=== PATIENT | female | born 1970 | race Caucasian/White ===

== ENCOUNTER 2020-01-13 07:37 | Day surgery (SDC) | payer MEDICARE, MEDICAID, SELFPAY ==
[2020-01-07 15:41] VITALS: BMI 25.8
--- NOTE | 2020-01-09 15:34 | HO.ANESPROP2 ---
Documented by User: Anuja Soria 01/09/20 15:35 HPI - Anesthesia Eval Consult details Narrative: 49yo F for Colonoscopy PMFSH Past Medical History Medical History Asthma Chronic back pain Depression Diabetes Erythrocytosis Fatty liver Hx of renal calculi OCD (obsessive compulsive disorder) Panic disorder Rheumatoid arthritis Surgical History Surgical History Hx of appendectomy Social History Social History Are you a primary care manager cna to a significant other at home: No Do you presently have visiting nurse or other home services: No Smoking Status: Never smoker Use of substances other than those prescribed or required for medical reasons: No Have you been hit, kicked, punched, or otherwise hurt by someone within the past year? If so, by whom?: No Advance Directives: No Advance Directives Information Provided: No Advance Directives on File: No Recently lost weight without trying: No Meds Allergies Allergy/AdvReac Type Severity Reaction Status Date / Time No Known Allergies Allergy Unverified 11/07/19 14:59 Home Medications Medication Instructions Recorded Confirmed Type acetaminophen [Tylenol Extra 500 mg PO Q6H PRN 01/07/20 01/07/20 History Strength] albuterol sulfate [Ventolin HFA] INHALATION 01/07/20 History atorvastatin 1 tab PO DAILY 01/07/20 01/07/20 History clonazepam 1 tab PO BEDTIME PRN 01/07/20 01/07/20 History escitalopram oxalate 1 tab PO DAILY 01/07/20 01/07/20 History fenofibrate 1 tab PO DAILY 01/07/20 01/07/20 History fluticasone propion-salmeterol INHALATION 01/07/20 History [Advair Diskus] gabapentin PO 01/07/20 History hydroxyzine pamoate 1 cap PO TID 01/07/20 01/07/20 History metformin 1 tab PO BID 01/07/20 01/07/20 History omeprazole 20 mg PO DAILY 01/07/20 01/07/20 History sertraline mg PO 01/07/20 History Exam Exam Date and Time: January 09, 2020 1534 Height,Weight and Vital Signs: Height 5 ft 3 in Weight 66.224 kg Pertinent Lab Results Pertinent Lab Results: Laboratory Tests 10/30/19 13:47 Sodium 140 Potassium 4.1 Chloride 106 BUN 12 Creatinine 0.76 Assessment and Plan Assessment Anesthesia Assessment: Chart Reviewed Documented by User: Nisha Cuellar 01/13/20 07:49 PMFSH Past Medical History Medical History Asthma Chronic back pain Depression Diabetes Erythrocytosis Fatty liver Hx of renal calculi OCD (obsessive compulsive disorder) Panic disorder Rheumatoid arthritis Surgical History Surgical History Hx of appendectomy Social History Social History Are you a primary care manager cna to a significant other at home: No Do you presently have visiting nurse or other home services: No Smoking Status: Never smoker Use of substances other than those prescribed or required for medical reasons: No Have you been hit, kicked, punched, or otherwise hurt by someone within the past year? If so, by whom?: No Advance Directives: No Advance Directives Information Provided: No Advance Directives on File: No Recently lost weight without trying: No Meds Allergies Allergy/AdvReac Type Severity Reaction Status Date / Time No Known Allergies Allergy Unverified 11/07/19 14:59 Home Medications Medication Instructions Recorded Confirmed Type acetaminophen [Tylenol Extra 500 mg PO Q6H PRN 01/07/20 01/07/20 History Strength] albuterol sulfate [Ventolin HFA] INHALATION 01/07/20 History atorvastatin 1 tab PO DAILY 01/07/20 01/07/20 History clonazepam 1 tab PO BEDTIME PRN 01/07/20 01/07/20 History escitalopram oxalate 1 tab PO DAILY 01/07/20 01/07/20 History fenofibrate 1 tab PO DAILY 01/07/20 01/07/20 History fluticasone propion-salmeterol INHALATION 01/07/20 History [Advair Diskus] gabapentin PO 01/07/20 History hydroxyzine pamoate 1 cap PO TID 01/07/20 01/07/20 History metformin 1 tab PO BID 01/07/20 01/07/20 History omeprazole 20 mg PO DAILY 01/07/20 01/07/20 History sertraline mg PO 01/07/20 History Exam Airway Mallampati Class: II (Cap on the top) TM Dist: >3cm Neck ROM: Full Heart: RRR Lungs: CtA BL Assessment and Plan Assessment Anesthesia Assessment: Anesthesia Plan Discussed and Chart Reviewed Final Anesthetic Review NPO: Yes ASA Class: II Final Preanesthetic Review: Meds/Allgs Chart Reviewed and Consent Obtained/Reviewed Patient Risk: Intermediate Procedure Risk: Intermediate Anesthetic Plan Anesthetic Plan: MAC: Disposition: Standard PACU
[2020-01-13 08:00] LABS: Glucose, Whole Blood 116 mg/dL (60-115)
[2020-01-13 08:06] VITALS: BP 106/77; PULSE 96; RESP 18; TEMP 30.7; O2SAT 96
[2020-01-13] MEDS: Lactated Ringers 1,000 ML 100 ML IVCONT (08:09)
[2020-01-13 09:19] VITALS: BP 97/62; PULSE 107; RESP 16; TEMP 36.6; O2SAT 94
--- NOTE | 2020-01-13 09:21 | PM.OP ---
Brief Operative Note Date of Service: 01/13/20 Pre-op diagnosis: Screening, Family hx of colon cancer Post-op diagnosis: other (Same, Occ. diverticulosis, small internal hemorrhoids) Procedure: Colonoscopy to cecum and TI Surgeon: Mehdi Paiz Anesthesia: MAC Estimated blood loss (mL): 0 Pathology: none sent Condition: stable Disposition: PACU
[2020-01-13 09:34] VITALS: BP 99/59; PULSE 97; RESP 18; O2SAT 95
--- NOTE | 2020-01-13 09:34 | OP_ITS ---
SURGEON: Mehdi Paiz MD INDICATIONS: The patient presents for evaluation of colorectal cancer screening and family history of colon cancer. Full consent has been obtained from her for this, including risks of bleeding and perforation. PREOPERATIVE DIAGNOSIS: POSTOPERATIVE DIAGNOSIS: PROCEDURE PERFORMED: Colonoscopy to the cecum and terminal ileum. ESTIMATED BLOOD LOSS: COMPLICATIONS: ANESTHESIA: Monitored anesthesia care. ASSISTANTS: SPECIMENS: PREOPERATIVE DIAGNOSES: Colorectal cancer screening and family history of colon cancer. POSTOPERATIVE DIAGNOSES: Colorectal cancer screening and family history of colon cancer, occasional sigmoid diverticulosis, small internal hemorrhoids. DESCRIPTION OF PROCEDURE: The patient was placed in the left lateral decubitus position. The digital rectal exam revealed no abnormalities. The Olympus video pediatric colonoscope was entered into the rectum and advanced easily to the cecum. Once in the cecum, I did identify normal-appearing cecal pouch with appendiceal orifice and a normal-appearing ileocecal valve. The terminal ileum was cannulated and appeared normal. The scope was withdrawn back in the colon. The entire cecum and ileocecal valve appeared normal. The scope was slowly withdrawn assessing all mucosal surfaces carefully. Preparation was excellent. I did not visualize any sign of polyps, colitis, nor angiodysplasia. There were occasional diverticula in the sigmoid colon. In the rectum, scope was retroflexed visualizing small internal hemorrhoids, but no other pathology. The rectal mucosa appeared normal. The scope was straightened out and withdrawn from the patient. She tolerated the procedure well and was returned to recovery area in stable condition. IMPRESSION: 1. Occasional sigmoid diverticulosis. 2. Small internal hemorrhoids. PLAN: Given the family history of her father having had colon cancer in his 50s, I would recommend a repeat colonoscopy in 5 years for further screening. She would otherwise see me on a p.r.n. basis. MD ISMAEL Munguia/JILLIAN / [phone]
[2020-01-13 09:46] VITALS: BP 111/75; PULSE 85; RESP 18; O2SAT 94
[2020-01-13 09:56] VITALS: TEMP 36.6
== END 2020-01-13 10:40 | disposition home or self-care (01) ==
PROVIDERS: PCP Internal Medicine; Visit Provider Internal Medicine
PROC: 0DJD8ZZ Inspection of Lower Intestinal Tract, Via Natural or Artificial Opening Endoscopic (ICD-10-PCS; CPT 45378; principal; 2020-01-13 08:30)
DX: Z12.11 Encounter for screening for malignant neoplasm of colon (principal); K57.30 Diverticulosis of large intestine without perforation or abscess without bleeding; K64.8 Other hemorrhoids; Z80.0 Family history of malignant neoplasm of digestive organs; J45.909 Unspecified asthma, uncomplicated; E11.9 Type 2 diabetes mellitus without complications; Z79.84 Long term (current) use of oral hypoglycemic drugs; Z79.899 Other long term (current) drug therapy
CPT/HCPCS: G0105; 82947

== ENCOUNTER 2020-01-27 12:49 | Outpatient (REF) | payer MEDICARE, MEDICAID, SELFPAY ==
--- NOTE | 2020-01-27 | US_ITS ---
EXAMINATION: US PELVIC COMPLETE US TRANSVAGINAL CLINICAL INFORMATION: Followup left ovarian cyst. COMPARISON: None TECHNIQUE: Transabdominal and transvaginal ultrasound of the pelvis was performed. FINDINGS: The uterus has been surgically removed. The right ovary measures 2.1 x 1.8 x 1.1 cm and volume 2.2 mL. It appears unremarkable. The left ovary measures 3.7 x 3.0 x 3.3 cm and volume 19.1 mL. There is an anechoic cyst measuring 2.7 x 2.8 x 2.4 cm. It has slightly decreased in size from 08/14/2019. Normal arterial and venous vascular flow seen in the left ovary. There is no free fluid in the cul-de-sac. US/US pelvic complete IMPRESSION: Anechoic cyst left ovary measuring 2.8 cm. Somewhat same dimension as previous study where it measured 2.5 cm. The right ovary is unremarkable. The uterus has been surgically removed. There is no free fluid in the cul-de-sac.
--- NOTE | 2020-01-27 | US_ITS ---
EXAMINATION: US PELVIC COMPLETE US TRANSVAGINAL CLINICAL INFORMATION: Followup left ovarian cyst. COMPARISON: None TECHNIQUE: Transabdominal and transvaginal ultrasound of the pelvis was performed. FINDINGS: The uterus has been surgically removed. The right ovary measures 2.1 x 1.8 x 1.1 cm and volume 2.2 mL. It appears unremarkable. The left ovary measures 3.7 x 3.0 x 3.3 cm and volume 19.1 mL. There is an anechoic cyst measuring 2.7 x 2.8 x 2.4 cm. It has slightly decreased in size from 08/14/2019. Normal arterial and venous vascular flow seen in the left ovary. There is no free fluid in the cul-de-sac. US/US transvaginal IMPRESSION: Anechoic cyst left ovary measuring 2.8 cm. Somewhat same dimension as previous study where it measured 2.5 cm. The right ovary is unremarkable. The uterus has been surgically removed. There is no free fluid in the cul-de-sac.
== END 2020-01-27 12:50 | disposition home or self-care (01) ==
LOC: HO.US 12:49
PROVIDERS: PCP Internal Medicine; Visit Provider Internal Medicine
DX: R10.2 Pelvic and perineal pain (principal); N83.202 Unspecified ovarian cyst, left side
CPT/HCPCS: 76830; 76856

== ENCOUNTER 2020-04-14 10:13 | Outpatient (REF) | payer OTHER, SELFPAY ==
[2020-04-14 11:43] LABS: Estimated Average Glucose 111 mg/dL; Hemoglobin A1c % 5.5 %
[2020-04-14 12:06] LABS: Alanine Aminotransferase 38 U/L (0-31); Albumin Level 5.2 g/dL (3.5-5.0); Alkaline Phosphatase 53 U/L (39-117); Anion Gap 16 (12-20); Aspartate Amino Transferase 21 U/L (5-31); Bilirubin Total 0.6 mg/dL (0.0-1.0); Blood Urea Nitrogen 12 mg/dL (9-16); Calcium 10.2 mg/dL (8.4-10.2); Carbon Dioxide 25 mmol/L (22-29); Chloride 102 mmol/L (96-108); Cholesterol 149 mg/dL; Estimated Glomerular Filt Rate > 60; Glucose Random 115 mg/dL (60-115); HDL Cholesterol 43 mg/dL; LDL Cholesterol Calculated 75 mg/dl; Potassium 4.7 mmol/L (3.3-5.1); Sodium 138 mmol/L (135-145); Total Protein 7.9 g/dL (6.5-8.0); Triglycerides 156 mg/dL
== END 2020-04-14 10:14 | disposition home or self-care (01) ==
LOC: HO.LAB 10:13
PROVIDERS: PCP Internal Medicine; Visit Provider Internal Medicine
DX: E11.9 Type 2 diabetes mellitus without complications (principal); E78.2 Mixed hyperlipidemia; R10.32 Left lower quadrant pain
CPT/HCPCS: 36415; 80053; 80061; 83036

== ENCOUNTER 2020-09-24 08:57 | Outpatient (REF) | payer OTHER, SELFPAY ==
[2020-09-24 09:49] LABS: MANUAL DIFF FLAG NO
[2020-09-24 10:02] LABS: Basophils Percent Auto 0.3 % (0-2); Eosinophils Absolute Auto 0.2 X10*3/uL (0.0-0.4); Eosinophils Percent Auto 1.5 % (0-4); Hematocrit 46.5 % (37-47); Hemoglobin 15.4 g/dl (12.0-16.0); Imm Gran Abs Auto 0.03 X10*3/uL (0.00-0.03); Imm Gran Pct Auto 0.3 % (0.0-0.4); Lymphocytes Absolute Auto 2.2 X10*3/uL (1.2-4.9); Lymphocytes Percent Auto 21.7 % (20-40); Mean Corpuscular HGB Conc 33.1 g/dl (31.0-35.0); Mean Corpuscular Hemoglobin 28.6 pg (27.0-33.0); Mean Corpuscular Volume 86.4 fL (80-98); Mean Platelet Volume 11.1 fL (9.4-12.3); Monocytes Absolute Auto 0.7 X10*3/uL (0.1-1.2); Neutrophils Absolute Auto 7.2 X10*3/uL (2.0-8.3); Neutrophils Percent Auto 69.2 % (45-73); Platelet Count 278 X10*3/uL (160-400); Red Blood Count 5.38 X10*6/uL (4.20-5.50); Red Cell Distribution Width 13.3 % (11.0-16.0); White Blood Count 10.3 X10*3/uL (4.8-10.8)
[2020-09-24 10:03] LABS: Estimated Average Glucose 120 mg/dL; Hemoglobin A1c % 5.8 %
[2020-09-24 10:21] LABS: Alanine Aminotransferase 27 U/L (0-31); Albumin Level 4.6 g/dL (3.5-5.0); Alkaline Phosphatase 58 U/L (39-117); Anion Gap 14 (12-20); Aspartate Amino Transferase 22 U/L (5-31); Bilirubin Total 0.8 mg/dL (0.0-1.0); Blood Urea Nitrogen 15 mg/dL (9-16); Calcium 9.4 mg/dL (8.4-10.2); Carbon Dioxide 22 mmol/L (22-29); Chloride 105 mmol/L (96-108); Estimated Glomerular Filt Rate > 60; Glucose Random 96 mg/dL (60-115); Sodium 137 mmol/L (135-145); Total Protein 6.9 g/dL (6.5-8.0)
[2020-09-24 10:43] LABS: Thyroid Stimulating Hormone 0.76 uIU/mL (0.32-4.0)
== END 2020-09-24 08:58 | disposition home or self-care (01) ==
LOC: HO.LAB 08:57
PROVIDERS: PCP Internal Medicine; Visit Provider Internal Medicine
DX: E11.9 Type 2 diabetes mellitus without complications (principal); E87.1 Hypo-osmolality and hyponatremia
CPT/HCPCS: 36415; 80053; 83036; 84443; 85025

== ENCOUNTER 2020-10-28 09:33 | Outpatient (REF) | payer OTHER, SELFPAY ==
--- NOTE | ~2020-10-28 | MM_ITS ---
EXAMINATION: MM SCREENING DIGITAL BREAST TOMOSYNTHESIS, BILATERAL CLINICAL INFORMATION: Screening. Asymptomatic. The lifetime risk of breast cancer based on the Tyrer-Cuzick Model is 8%. COMPARISON: Mammography: 09/07/2018, 08/22/2017, 01/06/2016 TECHNIQUE: Digital breast tomosynthesis is performed in both the craniocaudal and mediolateral oblique views along with computer-aided detection (CAD). Synthesized 2D images are generated from the tomosynthesis. FINDINGS: There are scattered areas of fibroglandular density (ACR BI-RADS breast composition Category b). There are no significant masses, abnormal calcifications, or other abnormalities. Parenchymal pattern is similar to prior studies. No developing density. The axilla and skin contours are unremarkable. MM/MM tomosynthesis screening BI IMPRESSION: No mammographic evidence of malignancy. ASSESSMENT: BI-RADS 1: Negative RECOMMENDATION: Routine annual mammography screening. This patient's information was entered into a reminder system with a target due date for their next mammogram.
== END 2020-10-28 09:34 | disposition home or self-care (01) ==
LOC: HO.MAMMO 09:33
PROVIDERS: Visit Provider Internal Medicine
DX: Z12.31 Encounter for screening mammogram for malignant neoplasm of breast (principal)
CPT/HCPCS: 77063; 77067

== ENCOUNTER 2021-02-04 09:11 | Outpatient (REF) | payer OTHER, SELFPAY ==
[2021-02-04 10:09] LABS: Estimated Average Glucose 117 mg/dL; Hemoglobin A1c % 5.7 %
[2021-02-04 10:17] LABS: Alanine Aminotransferase 19 U/L (0-31); Albumin Level 4.7 g/dL (3.5-5.0); Alkaline Phosphatase 47 U/L (39-117); Anion Gap 14 (12-20); Aspartate Amino Transferase 18 U/L (5-31); Bilirubin Total 0.4 mg/dL (0.0-1.0); Blood Urea Nitrogen 11 mg/dL (9-16); Calcium 10.1 mg/dL (8.4-10.2); Carbon Dioxide 26 mmol/L (22-29); Chloride 105 mmol/L (96-108); Cholesterol 137 mg/dL; Estimated Glomerular Filt Rate > 60; Glucose Random 96 mg/dL (60-115); HDL Cholesterol 40 mg/dL; LDL Cholesterol Calculated 74 mg/dl; Potassium 4.5 mmol/L (3.3-5.1); Sodium 140 mmol/L (135-145); Triglycerides 118 mg/dL
[2021-02-04 10:39] LABS: Thyroid Stimulating Hormone 1.33 uIU/mL (0.32-4.0)
[2021-02-04 11:01] LABS: Creatinine Urine 66.91 mg/dL; Microalbum/Creatinine Ratio Ur 10.4 ug/mg cr
== END 2021-02-04 09:12 | disposition home or self-care (01) ==
LOC: HO.LAB 09:11
PROVIDERS: Visit Provider Internal Medicine
DX: Z00.01 Encounter for general adult medical examination with abnormal findings (principal); E11.9 Type 2 diabetes mellitus without complications; E78.2 Mixed hyperlipidemia; R63.4 Abnormal weight loss
CPT/HCPCS: 36415; 80053; 80061; 82043; 83036; 84443

== ENCOUNTER 2021-07-09 08:46 | Outpatient (REF) | payer OTHER, SELFPAY ==
[2021-07-09 09:29] LABS: Estimated Average Glucose 123 mg/dL; Hemoglobin A1c % 5.9 %
[2021-07-09 09:41] LABS: Alanine Aminotransferase 32 U/L (0-31); Albumin Level 4.8 g/dL (3.5-5.0); Alkaline Phosphatase 62 U/L (39-117); Anion Gap 13 (12-20); Aspartate Amino Transferase 20 U/L (5-31); Bilirubin Total 0.5 mg/dL (0.0-1.0); Blood Urea Nitrogen 11 mg/dL (9-16); Calcium 10.1 mg/dL (8.4-10.2); Carbon Dioxide 29 mmol/L (22-29); Chloride 103 mmol/L (96-108); Estimated Glomerular Filt Rate > 60; Glucose Random 107 mg/dL (60-115); Potassium 4.5 mmol/L (3.3-5.1); Sodium 140 mmol/L (135-145); Total Protein 7.2 g/dL (6.5-8.0)
== END 2021-07-09 08:47 | disposition home or self-care (01) ==
LOC: HO.LAB 08:46
PROVIDERS: PCP Internal Medicine; Visit Provider Internal Medicine
DX: E11.9 Type 2 diabetes mellitus without complications (principal); E78.00 Pure hypercholesterolemia, unspecified; M25.512 Pain in left shoulder; F17.211 Nicotine dependence, cigarettes, in remission
CPT/HCPCS: 36415; 80053; 83036

== ENCOUNTER 2021-10-08 10:13 | Outpatient (REF) | payer OTHER, SELFPAY ==
[2021-10-08 12:05] LABS: Basophils Percent Auto 0.4 % (0-2); Eosinophils Absolute Auto 0.1 X10*3/uL (0.0-0.4); Eosinophils Percent Auto 1.4 % (0-4); Hematocrit 49.9 % (37.0-47.0); Hemoglobin 16.4 g/dl (12.0-16.0); Imm Gran Abs Auto 0.03 X10*3/uL (0.00-0.03); Imm Gran Pct Auto 0.4 % (0.0-0.4); Lymphocytes Absolute Auto 2.6 X10*3/uL (1.2-4.9); Lymphocytes Percent Auto 30.3 % (20-40); MANUAL DIFF FLAG SCAN; Mean Corpuscular HGB Conc 32.9 g/dl (31.0-35.0); Mean Corpuscular Hemoglobin 28.6 pg (27.0-33.0); Mean Corpuscular Volume 87.1 fL (80.0-98.0); Monocytes Absolute Auto 0.6 X10*3/uL (0.1-1.2); Monocytes Percent Auto 6.6 % (2-11); Neutrophils Absolute Auto 5.2 x10*3/uL (2.0-8.3); Neutrophils Percent Auto 60.9 % (45-73); PLT CLUMP 1; Red Blood Count 5.73 X10*6/uL (4.20-5.50); Red Cell Distribution Width 13.5 % (11.0-16.0); SCAN SMEAR FLAG 1
[2021-10-08 12:38] LABS: White Blood Count 8.5 X10*3/uL (4.8-10.8)
[2021-10-08 12:39] LABS: SLIDE REVIEW VERIFIED
[2021-10-08 13:26] LABS: Creatinine Urine 107.01 mg/dL; Microalbum/Creatinine Ratio Ur 7.4 ug/mg cr
== END 2021-10-08 10:14 | disposition home or self-care (01) ==
LOC: HO.LAB 10:13
PROVIDERS: PCP Internal Medicine; Visit Provider Internal Medicine
DX: E11.9 Type 2 diabetes mellitus without complications (principal); E78.00 Pure hypercholesterolemia, unspecified; J45.909 Unspecified asthma, uncomplicated; F17.211 Nicotine dependence, cigarettes, in remission
CPT/HCPCS: 36415; 80053; 80061; 82043; 84443; 85025

== ENCOUNTER 2021-11-03 09:26 | Outpatient (REF) | payer OTHER, SELFPAY ==
--- NOTE | ~2021-11-03 | MM_ITS ---
EXAMINATION: MM SCREENING DIGITAL BREAST TOMOSYNTHESIS, BILATERAL CLINICAL INFORMATION: Screening. Asymptomatic. The lifetime risk of breast cancer based on the Tyrer-Cuzick Model is 10%. COMPARISON: Mammography: 10/28/2020, 09/07/2018, 08/22/2017 TECHNIQUE: Digital breast tomosynthesis is performed in both the craniocaudal and mediolateral oblique views along with computer-aided detection (CAD). Synthesized 2D images are generated from the tomosynthesis. FINDINGS: There are scattered areas of fibroglandular density (ACR BI-RADS breast composition Category b). There are no significant masses, abnormal calcifications, or other abnormalities. Parenchymal pattern is similar to prior studies. There is no developing density or architectural abnormality. The axilla and skin contours are unremarkable. No significant changes. MM/MM tomosynthesis screening BI IMPRESSION: No mammographic evidence of malignancy. ASSESSMENT: BI-RADS 1: Negative RECOMMENDATION: Routine annual mammography screening. This patient's information was entered into a reminder system with a target due date for their next mammogram.
== END 2021-11-03 09:27 | disposition home or self-care (01) ==
LOC: HO.MAMMO 09:26
PROVIDERS: PCP Internal Medicine; Visit Provider Internal Medicine
DX: Z12.31 Encounter for screening mammogram for malignant neoplasm of breast (principal)
CPT/HCPCS: 77063; 77067

== ENCOUNTER 2022-01-06 08:03 | Outpatient (REF) | payer MEDICARE, MEDICAID, SELFPAY ==
[2022-01-06 08:56] LABS: Estimated Average Glucose 117 mg/dL; Hemoglobin A1c % 5.7 %
[2022-01-06 09:31] LABS: Alanine Aminotransferase 45 U/L (0-31); Alkaline Phosphatase 67 U/L (39-117); Anion Gap 15 (12-20); Aspartate Amino Transferase 27 U/L (5-31); Bilirubin Total 0.3 mg/dL (0.0-1.0); Blood Urea Nitrogen 8 mg/dL (9-16); Calcium 10.2 mg/dL (8.4-10.2); Carbon Dioxide 24 mmol/L (22-29); Chloride 105 mmol/L (96-108); Estimated Glomerular Filt Rate > 60; Ferritin 111 ng/mL (10-250); Glucose Random 107 mg/dL (60-115); Potassium 4.3 mmol/L (3.3-5.1); Sodium 140 mmol/L (135-145); Total Protein 7.4 g/dL (6.5-8.0)
[2022-01-08 14:42] LABS: Transferrin 319 mg/dL (188-341)
== END 2022-01-06 08:04 | disposition home or self-care (01) ==
LOC: HO.LAB 08:03
PROVIDERS: PCP Internal Medicine; Visit Provider Internal Medicine
DX: Z00.00 Encounter for general adult medical examination without abnormal findings (principal); D75.1 Secondary polycythemia; E11.9 Type 2 diabetes mellitus without complications; E78.00 Pure hypercholesterolemia, unspecified; I10 Essential (primary) hypertension; R74.01 Elevation of levels of liver transaminase levels
CPT/HCPCS: 36415; 80053; 82728; 83036; 84466

== ENCOUNTER → 2022-03-17 14:55 | Outpatient (BNVA) | payer MEDICARE, MEDICAID, SELFPAY | PROVIDERS: PCP Internal Medicine; Referring Provider Internal Medicine; Visit Provider Surgery | DX: L82.1 Other seborrheic keratosis (principal) | CPT/HCPCS: 99202 ==

== ENCOUNTER 2022-09-19 09:02 | Outpatient (REF) | payer MEDICARE, MEDICAID, SELFPAY ==
[2022-09-19 09:15] LABS: MANUAL DIFF FLAG NO
[2022-09-19 10:17] LABS: Basophils Absolute Auto 0.1 X10*3/uL (0.0-0.2); Basophils Percent Auto 0.5 % (0-2); Eosinophils Absolute Auto 0.1 X10*3/uL (0.0-0.4); Eosinophils Percent Auto 1.4 % (0-4); Hematocrit 49.5 % (37.0-47.0); Imm Gran Abs Auto 0.04 X10*3/uL (0.00-0.03); Imm Gran Pct Auto 0.4 % (0.0-0.4); Lymphocytes Absolute Auto 2.8 X10*3/uL (1.2-4.9); Lymphocytes Percent Auto 29.9 % (20-40); Mean Corpuscular HGB Conc 32.3 g/dl (31.0-35.0); Mean Corpuscular Hemoglobin 28.5 pg (27.0-33.0); Mean Corpuscular Volume 88.1 fL (80.0-98.0); Mean Platelet Volume 11.4 fL (9.4-12.3); Monocytes Absolute Auto 0.8 X10*3/uL (0.1-1.2); Monocytes Percent Auto 8.3 % (2-11); Neutrophils Absolute Auto 5.6 x10*3/uL (2.0-8.3); Neutrophils Percent Auto 59.5 % (45-73); Platelet Count 272 X10*3/uL (160-400); Red Blood Count 5.62 X10*6/uL (4.20-5.50); Red Cell Distribution Width 13.4 % (11.0-16.0); White Blood Count 9.4 X10*3/uL (4.8-10.8)
== END 2022-09-19 09:03 | disposition home or self-care (01) ==
LOC: HO.LAB 09:02
PROVIDERS: PCP Internal Medicine; Visit Provider Internal Medicine
DX: D75.1 Secondary polycythemia (principal); E11.9 Type 2 diabetes mellitus without complications; J45.909 Unspecified asthma, uncomplicated; L82.1 Other seborrheic keratosis
CPT/HCPCS: 36415; 80053; 85025

== ENCOUNTER 2022-09-20 08:08 | Outpatient (REF) | payer MEDICARE, MEDICAID, SELFPAY ==
[2022-09-20 09:32] LABS: Alanine Aminotransferase 36 U/L (0-31); Albumin Level 4.8 g/dL (3.5-5.0); Alkaline Phosphatase 49 U/L (39-117); Anion Gap 16 (12-20); Aspartate Amino Transferase 27 U/L (5-31); Bilirubin Total 0.4 mg/dL (0.0-1.0); Blood Urea Nitrogen 12 mg/dL (9-16); Carbon Dioxide 23 mmol/L (22-29); Chloride 104 mmol/L (96-108); Estimated Glomerular Filt Rate > 60; Glucose Random 98 mg/dL (60-115); Sodium 139 mmol/L (135-145); Total Protein 7.6 g/dL (6.5-8.0)
== END 2022-09-20 08:09 | disposition home or self-care (01) ==
LOC: HO.LAB 08:08
PROVIDERS: PCP Internal Medicine; Visit Provider Internal Medicine
DX: D75.1 Secondary polycythemia (principal); E11.9 Type 2 diabetes mellitus without complications; J45.909 Unspecified asthma, uncomplicated; L82.1 Other seborrheic keratosis
CPT/HCPCS: 36415; 80053